=== PATIENT | female | born 1985 | race Caucasian/White ===

== ENCOUNTER → 2020-03-16 | Outpatient (CLI) | payer OTHER | LOC: DTY/OP 14:00 | PROVIDERS: ATTEND Surgery | DX: E66.01 Morbid (severe) obesity due to excess calories (principal) | CPT/HCPCS: 97802 ==

== ENCOUNTER 2020-04-20 09:15 | Outpatient (CLI) | payer OTHER ==
--- NOTE | 2020-04-20 09:40 | RAD ---
PA AND LATERAL CHEST: Date: 04/20/2020 INDICATION: Preop evaluation. COMPARISON: Prior exam dated 05/01/2016. IMPRESSION: No acute cardiopulmonary abnormality. COMMENTS: Lungs are clear. Heart size is normal. No pleural effusion or pneumothorax is evident. No acute osseo us abnormality. POS: BH
[2020-04-20 11:24] LABS: #Basophils 0.1 thou/uL (0.0-0.2); #Eosinphils 0.2 thou/uL (0.0-0.7); #Lymphocytes 3.2 thou/uL (1.20-3.40); #Monocytes 0.9 thou/uL (0.11-0.59); #Neutrophils 4.3 thou/uL (1.40-6.50); %Basophils 0.6 % (0.0-1.0); %Eosinophils 2.1 % (0.0-10.0); %Neutrophils 50.3 % (42.0-75.0); Hemoglobin 13.9 g/dL (12.0-16.0); Mean Corpuscular HGB CONC 32.2 g/dL (32.0-36.0); Mean Corpuscular Hemoglobin 29.7 pg (27.0-31.0); Mean Corpuscular Volume 92.1 fL (78.0-98.0); Mean Platelet Volume 8.4 fL (7.4-10.4); Platelet Count 261 thou/uL (130-400); RBC Distribution Width 12.6 % (11.5-14.5); Red Blood Cell (RBC) Count 4.68 mill/uL (4.20-5.40); White Blood Cell (WBC) Count 8.6 thou/uL (4.8-10.8)
[2020-04-20 11:50] LABS: ALT (SGPT) 26 U/L (8-55); AST (SGOT) 15 U/L (5-34); Albumin 4.2 g/dL (3.5-5.0); Alkaline Phosphatase 71 U/L (40-110); Anion Gap 13 mmol/L (10-20); BUN (Urea Nitrogen) 11 mg/dL (7.0-18.7); Bilirubin, Total 0.4 mg/dL (0.2-1.2); Calc. Creatinine Clearance 0 mL/min (70-130); Calcium 9.5 mg/dL (7.8-10.44); Carbon Dioxide 26 mmol/L (22-29); Chloride 104 mmol/L (98-107); Estimated GFR-MDRD 81; Glucose 79 mg/dL (70-105); Potassium 4.4 mmol/L (3.5-5.1); Protein, Total 7.2 g/dL (6.0-8.3); Sodium 139 mmol/L (136-145)
[2020-04-20 14:19] LABS: BHCG - Serum Negative (NEGATIVE); Pregs Control Background? CLEAR/WHITE (CLR/WHITE); Pregs Control Bar Appear? YES (CONTROL BAR)
[2020-04-20 17:21] LABS: SARS-CoV-2 MS2 Positive; SARS-CoV-2 N Gene Negative; SARS-CoV-2 S Gene Negative; SARS-CoV-2 by NAA Not Detected (NotDetected); SARS-CoV-2 orf1ab Negative
== END 2020-04-20 09:16 | disposition home or self-care (01) ==
LOC: LABBT 09:15 → SCSRAD 09:16
PROVIDERS: ATTEND Surgery
DX: Z01.818 Encounter for other preprocedural examination (principal); Z11.59 Encounter for screening for other viral diseases; E66.01 Morbid (severe) obesity due to excess calories
CPT/HCPCS: 71046; 80053; 83036; 84703; 85025; 87635; 93005; 93010; U0003

== ENCOUNTER 2020-04-25 09:57 | Inpatient (IN) | payer OTHER ==
[2020-04-24 10:22] VITALS: BMI 43.2
[2020-04-25] MEDS ORDERED: diphenhydrAMINE 50 MG/ML VIAL ONE (10:07)
[2020-04-25] MEDS ORDERED: Ondansetron PF 4 MG/2 ML Vial ONE (10:07)
[2020-04-25] MEDS ORDERED: Glycopyrrolate 0.2 MG/ML 5 ML SYRINGE ONE (10:07)
[2020-04-25] MEDS ORDERED: PROPOFOL 200 MG/20 ML VIAL ONE (10:07)
[2020-04-25] MEDS ORDERED: Rocuronium Bromide 10 MG/ML (10ML VIAL) ONE (10:07)
[2020-04-25] MEDS ORDERED: Ketorolac Tromethamine 30 MG/ML VIAL ONE (10:07)
[2020-04-25] MEDS ORDERED: Dexamethasone 20 MG/5 ML VIAL ONE (10:07)
[2020-04-25] MEDS ORDERED: Heparin 5,000 UNITS/ML VIAL ONE (11:43)
[2020-04-25] MEDS ORDERED: Midazolam HCl 2 mg/2 ml Vial ONE (12:08)
[2020-04-25] MEDS ORDERED: Fentanyl 250 MCG/5 ML VIAL ONE (12:08)
[2020-04-25] MEDS ORDERED: Bupivacaine PF 0.5% 30 ML VIAL ONE (12:13)
[2020-04-25] MEDS ORDERED: Lidocaine 1% w/Epinephrine 1:100K 20 ML VIAL ONE (12:13)
[2020-04-25] MEDS ORDERED: Ondansetron HCl/PF 4 MG/2 ML Vial IVP PRN (13:59)
[2020-04-25] MEDS ORDERED: Fentanyl 100 MCG/2 ML VIAL ONE ×3 (13:59→14:41)
[2020-04-25] MEDS ORDERED: HYDROmorphone 2 MG/ML VIAL SLOW IVP PRN (13:59)
[2020-04-25] MEDS ORDERED: Morphine Sulfate 2 MG/ML SYRINGE SLOW IVP PRN (13:59)
[2020-04-25] MEDS ORDERED: Meperidine HCl/PF 25 MG/ML VIAL SLOW IVP PRN (13:59)
[2020-04-25] MEDS ORDERED: Promethazine HCl 25 MG/ML VIAL SLOW IVP PRN (13:59)
[2020-04-25] MEDS ORDERED: PACU-Morphine 4MG/ML VIAL SLOW IVP PRN (13:59)
[2020-04-25] MEDS ORDERED: Promethazine HCl 25 MG/ML VIAL ONE (14:00)
[2020-04-25] MEDS ORDERED: Ketorolac Tromethamine 30 MG/ML VIAL IVP PRN (14:36)
[2020-04-25] MEDS ORDERED: diphenhydrAMINE 50 MG/ML VIAL IM PRN (14:36)
[2020-04-25] MEDS ORDERED: Naloxone HCl 0.4 mg/ml Vial IV PRN (14:36)
[2020-04-25] MEDS ORDERED: Promethazine HCl 25 MG/ML VIAL IM PRN ×2 (14:36→14:39)
[2020-04-25] MEDS ORDERED: Ondansetron PF 4 MG/2 ML Vial IVP PRN ×2 (14:36→14:39)
[2020-04-25] MEDS ORDERED: diphenhydrAMINE 25 MG CAP PO PRN (14:36)
[2020-04-25] MEDS ORDERED: diphenhydrAMINE 50 MG/ML VIAL IVP PRN ×2 (14:36→14:39)
[2020-04-25] MEDS ORDERED: fentaNYL Citrate/PF 2,000 MCG in Sodium Chloride 0.9% 60 ML IV PRN (14:36)
[2020-04-25] MEDS ORDERED: Zolpidem Tartrate 5 MG TAB PO PRN (14:36)
[2020-04-25] MEDS ORDERED: Dextrose 5% in Water 1,000 ML IV PRN (14:39)
[2020-04-25] MEDS ORDERED: Dextrose 50% Abboject 50 ML SYRINGE SLOW IVP PRN (14:39)
[2020-04-25] MEDS ORDERED: Hydrocodone-Acetamin 15 ML UDCUP PO PRN (14:39)
[2020-04-25] MEDS ORDERED: hydrALAZINE 20 MG/ML VIAL SLOW IVP PRN (14:39)
[2020-04-25] MEDS ORDERED: Communication Order-Pharmacy FS SCH (14:45)
[2020-04-25] MEDS: D5 1/2 NS w/20 mEq KCL 1,000 ML IV SCH (18:08)
[2020-04-25] MEDS ORDERED: Enoxaparin Sodium 40 MG/0.4 ML SYRINGE SC SCH (21:00)
[2020-04-26] MEDS: D5 1/2 NS w/20 mEq KCL 1,000 ML IV SCH ×3 (01:39→17:51)
--- NOTE | 2020-04-26 02:12 | OP ---
DATE OF PROCEDURE: 04/25/2020 PREOPERATIVE DIAGNOSIS: Morbid obesity with a body mass index of 43. POSTOPERATIVE DIAGNOSES: Morbid obesity with a body mass index of 43 and hiatal hernia. PROCEDURES PERFORMED: 1. Laparoscopic sleeve gastrectomy with GORE staple line reinforcements and 38-[place] bougie. 2. Hiatal hernia repair, paraesophageal, without fundoplication or mesh. 3. Esophagogastroduodenoscopy. ANESTHESIA: General. ESTIMATED BLOOD LOSS: Minimal. COMPLICATIONS: None. FINDINGS: Normal postoperative EGD. DESCRIPTION OF PROCEDURE: The patient was taken to the operating room and laid supine on the operating room table. After general anesthetic was obtained, her arms and legs were double strapped to bariatric table. Her abdomen was prepped and draped in a sterile fashion. A left subcostal 5-mm Optiview trocar was placed in usual fashion and high-flow pneumoperitoneum was obtained. Left and right abdominal 12-mm ports as well as right subcostal 5-mm port were all placed under direct visualization. A 5-mm incision was made at the xiphoid, and Deya's were used to raise the liver off the GE junction. The short gastrics were taken down from midbody of the stomach to the left david of the diaphragm. Left david, posterior fundus, and angle of His were completely dissected. Short gastrics were taken down to a distance of 6 cm proximal to the pylorus. The patient was found to have a hiatal hernia, so circumferential dissection of the esophagus was performed at the fundus of the stomach, which was up in the chest cavity was brought back into the abdominal cavity as was the GE junction. 38 bougie was brought in, tip was left in the antrum of the stomach. Multiple loads of [place] stapling device were used to form the sleeve. The first was fired up at a distance of 6 cm proximal to the pylorus, angled up towards the incisura. Multiple loads were then fired up along the bougie. Stomach was completely transected at the angle of His. The stomach was removed from the left abdominal incision. The fascial defect was closed using GraNee needle and 0 Vicryl tie. The posterior crura were closed using 2 Ethibond sutures in the Ti-KNOT system. EGD scope was passed through the esophagus, stomach to the level of duodenum without obstruction. There was no stricture at the incisura, does not appear to be too tight at the esophageal hiatus or at the GE junction. No air leak was through the staple line. EGD scope was used to decompress the stomach, was pulled and removed. All port sites were infiltrated using local anesthetic. All ports were removed under camera visualization as was the Deya retractor and pneumoperitoneum was let down. Vicryl was used to close the fascial defect from the left abdominal incisions. All incisions were irrigated and closed using 4-0 Monocryl and Dermabond. The patient was sent to Recovery in stable condition. All instrument counts, needle counts, and lap counts were correct. Job ID: [id number]
[2020-04-26 05:19] LABS: #Lymphocytes 2.4 thou/uL (1.20-3.40); #Monocytes 1.1 thou/uL (0.11-0.59); #Neutrophils 9.4 thou/uL (1.40-6.50); %Basophils 0.1 % (0.0-1.0); %Eosinophils 0.3 % (0.0-10.0); %Lymphocytes 18.2 % (21.0-51.0); %Monocytes 8.5 % (0.0-10.0); Hemoglobin 12.4 g/dL (12.0-16.0); Mean Corpuscular HGB CONC 32.1 g/dL (32.0-36.0); Mean Corpuscular Hemoglobin 29.7 pg (27.0-31.0); Mean Corpuscular Volume 92.5 fL (78.0-98.0); Mean Platelet Volume 8.3 fL (7.4-10.4); Platelet Count 221 thou/uL (130-400); RBC Distribution Width 12.4 % (11.5-14.5); Red Blood Cell (RBC) Count 4.19 mill/uL (4.20-5.40); White Blood Cell (WBC) Count 12.9 thou/uL (4.8-10.8)
[2020-04-26 05:29] LABS: Anion Gap 11 mmol/L (10-20); BUN (Urea Nitrogen) 5 mg/dL (7.0-18.7); Calc. Creatinine Clearance 200 mL/min (70-130); Calcium 8.5 mg/dL (7.8-10.44); Carbon Dioxide 22 mmol/L (22-29); Chloride 105 mmol/L (98-107); Estimated GFR-MDRD 90; Glucose 106 mg/dL (70-105); Potassium 4.4 mmol/L (3.5-5.1); Sodium 134 mmol/L (136-145)
[2020-04-26] MEDS ORDERED: Pantoprazole 40 MG VIAL IVP SCH (09:00)
[2020-04-26 15:46] VITALS: BP 119/79; TEMP 99
--- NOTE | 2020-04-26 18:33 | DIS ---
DATE OF ADMISSION: 04/25/2020 DATE OF DISCHARGE: 04/26/2020 ADMISSION DIAGNOSIS: Morbid obesity. DISCHARGE DIAGNOSIS: Morbid obesity. PROCEDURE PERFORMED: Laparoscopic sleeve gastrectomy by Kristi without complication. CONDITION ON DISCHARGE: Improved. STAFF: Casey Berry MD HOSPITAL COURSE: On postop day #1, the patient is doing well, tolerating a liquid diet. Her pain is controlled. She is discharged home. She will follow up with me in 2 weeks. Job ID: [id number]
== END 2020-04-26 18:50 | disposition home or self-care (01) | DRG 621 ==
LOC: SURG A 09:57 → EEVIPCON 09:57 → SJJU 16:16
PROVIDERS: ADMIT Surgery; ATTEND Surgery
PROC: 0DB64Z3 Excision of Stomach, Percutaneous Endoscopic Approach, Vertical (ICD-10-PCS; principal; 2020-04-25)
PROC: 0DJ08ZZ Inspection of Upper Intestinal Tract, Via Natural or Artificial Opening Endoscopic (ICD-10-PCS; 2020-04-25)
PROC: 0BQT4ZZ Repair Diaphragm, Percutaneous Endoscopic Approach (ICD-10-PCS; 2020-04-25)
DX: E66.01 Morbid (severe) obesity due to excess calories (principal); Z68.41 Body mass index [BMI] 40.0-44.9, adult; K44.9 Diaphragmatic hernia without obstruction or gangrene
CPT/HCPCS: 36415; 80048; 85025; 88307; 88312; C9113; J0690; J1100; J1200; J1644; J1650; J1885; J2250; J2405; J2550; J2704; J3010; J3480; S0020